=== PATIENT | male | born 2000 | race Hispanic/Latino ===

== ENCOUNTER 2021-08-20 13:43 | Emergency (ER) | payer OTHER, SELFPAY ==
[2021-08-20 13:45] VITALS: BP 124/87; PULSE 89; RESP 16; TEMP 36.8; O2SAT 100; BMI 24.3
--- NOTE | 2021-08-20 14:41 | CT_ITS ---
STUDY: CT BRAIN WITHOUT CONTRAST REASON FOR EXAM: Male, 21 years old. Seizure and head injury RADIATION DOSAGE (If Supplied By Facility): CTDIvol = ( 44.99 ) mGy, DLP = ( 796.11 ) mGycm TECHNIQUE: Transaxial CT imaging of the brain was performed without administration of intravenous contrast material. Individualized dose optimization techniques were used for this CT. COMPARISON: No relevant priors. FINDINGS: Normal soft tissue structures. Normal calvarium. Normal size ventricles and extra-axial spaces for the patient''s age. Normal white matter tracts of the cerebral hemispheres. Normal basal ganglia and thalami. Normal brainstem. Normal cerebellum. There is no intracranial hemorrhage. There are no findings of an acute ischemic infarction. Normal visualized paranasal sinuses. CT/Brain/Head without Contrast IMPRESSION: Normal unenhanced CT scan of the brain. Electronically Signed: Garret Crum MD at 15:21 EDT ,
--- NOTE | 2021-08-20 14:46 | EDS_ITS ---
HPI History of Present Illness Chief Complaint: Syncope Informant: patient and spouse/S.O. Onset/Context/Timing Onset: Yesterday Context: Sudden Onset Timing: Intermittent Current Severity: Gone Maximum Severity: Moderate Narrative Narrative: 21-year-old male no seen past medical history. Reportedly was urinating yes terday said it was taken a while to urinate and it came out slowly and he felt cold got into a sweat and had a syncopal episode. He does remember anything past then. At that time his girlfriend came in saw him tense up lose consciousness fall backwards. She was concerned he had had a seizure. Said he was unconscious for 1 to 2 minutes. He denies any injuries. She was given to call the squad and he woke up so they did not seek care until today. He denies any recent illness. Only has a mild headache from falling and hitting his head. Denies any neck pain or other complaints. No recent illness. No prior history of seizures and no family history of seizures. Prior similar symptoms: No Recent Illness/Hospitalization: No PFSH PFSH Medical History no medical history no medical history Home Medications NK 08/20/21 [History Last Taken Unknown] Allergy/AdvReac Type Severity Reaction Status Date / Time No Known Allergies Allergy Verified 08/20/21 13:48 Surgical History no surgical history no surgical history Social History Smoking Status: Current every day smoker tobacco type: cigarettes and e- cigarettes ROS ROS ED ROS Narrative Denies recent illness. Review of Systems ROS Unobtainable: Denies due to encephalopathy Constitutional Constitutional ED: Denies chills Eyes Eyes: Denies blurry vision ENT ENT ED: Denies ear pain Cardiovascular Cardiovascular: Denies chest pain Respiratory/Chest Respiratory/Chest: Denies cough Gastrointestinal Gastrointestinal: Denies abdominal pain or constipation Genitourinary Genitourinary ED: Denies dysuria Musculoskeletal Musculoskeletal: Denies arthralgias Integumentary Denies abscess Neurologic Neurologic: Denies headache(s) Psychiatric Psychiatric: Denies anxiety Endocrine Endocrinology: Denies cold intolerance Hematologic/Lymphatic Hematologic/Lymphatic: Reports none Allergic/Immunologic Allergic/Immunologic ED: Denies mouth swelling or tongue swelling EXAM Physical Exam Narrative Exam Narrative: 19-year-old male no acute distress vital signs stable afebrile. Pulse ox 9% on room air no signs hypoxia. H EENT exam unremarkable. Pupils round reactive light. EXTR intact. No scalp tenderness. No hematomas or lacerations. C- spine nontender. Full range of motion. Trachea midline. Back nontender. Spine nontender. Lungs clear to auscultation. Heart regular rhythm no murmur. Abdomen soft nontender. Chest wall nontender. Moving all 4 extremities. Neurologically is awake and alert with no focal motor or sensory deficits. GCS of 15. NIH is 0. Bilateral [employer] un[employer] administrator strength. Bilateral fingertip to nose. Bilateral [id number] all within normal limits. Const Vital Signs: 08/20/21 13:45 08/20/21 15:11 Temperature 98.3 F Temperature Source Temporal Pulse Rate 89 Respiratory Rate 16 Respiratory Effort Normal Respiratory Pattern Normal Blood Pressure 124/87 H Blood Pressure Mean 99 Pulse Ox 100 Oxygen Delivery Method Room Air Positive well nourished and well developed; Negative for obese, cachectic, contractures or unkempt General Appearance ED: well developed; Negative for unkempt, cachectic or contractures Nutritional Appearance: Negative for cachectic or obese HEENT Reports moist mucous membranes; Denies dry mucous membranes Negative for trauma Mouth ED: No dry mucous membranes Mouth: No dry mucous membranes Eyes PERRL and EOMs intact bilaterally General Eye ED: Negative for pale conjunctiva or scleral icterus Neck no lymphadenopathy, supple and no JVD General: Negative for tenderness Lymph Lymphatic: Negative for other Chest Wall inspection of chest normal and palpation of chest normal Resp normal respiratory effort and clear to auscultation bilaterally Effort and Inspection: Negative for retractions Auscultation: Negative for rales, rhonchi or wheezes Cardio regular rate, regular rhythm, S1 normal heart sound, S2 normal heart sound and no murmurs Palpation: Negative for palpable S3 Rate: Negative for bradycardia Rhythm: Negative for abnormal rhythm GI normal to inspection, nondistended, normoactive bowel sounds, non-tender, non- distended and no masses; Negative for hepatosplenomegaly Inspection: Negative for abdominal distention Auscultation: normoactive bowel sounds Palpation: soft Back/Spine no CVA tenderness General Back: Negative for CVA tenderness Cervical Spine: Negative for cervical spine tenderness Thoracic Spine / Upper Back: Negative for thoracic spinal tenderness Lumbar Spine / Lower Back: Negative for lumbar spinal tenderness Extremity normal to inspection General Extremety ED: Negative for edema or tenderness General Extremity: Negative for edema Neuro oriented x3 and CN's II-XII intact bilaterally Sensorium / Orientation: alert Motor Exam: strength 5/5 throughout; Negative for general weakness or strength abnormal Psych mental status grossly normal Appearance: Negative for unkempt Attitude: No agitated Mood & Affect: Negative for depressed, anxious or tearful Skin no rashes or lesions noted, no wounds and skin turgor normal Rashes: No rashes noted Trauma: Negative for abrasion Wounds: Negative for wounds noted MDM MDM MDM Narrative Medical decision making narrative: 21-year-old male significant other is concerned he may have had a seizure yesterday it sounds like he had micturition syncope with myoclonic jerks. His exam is normal. We will get a CAT scan and labs. Repeat exam patient doing well at 3:40 PM. To be discharged home. Clinically I think this was micturition syncope and not a seizure. Lab Data Attestation: I reviewed the patient's lab results. Lab results narrative: CBC normal. White count of 6. H&H 15 and 44. Electrolytes normal. Normal gap. Normal BUN and creatinine. Normal glucose. CT of the brain shows no acute abnormality. Read by the radiologist and reviewed. Labs: Laboratory Results - last 24 hr 08/20/21 08/20/21 08/20/21 14:50 14:50 15:22 WBC Cancelled 6.2 Corrected WBC Cancelled RBC Cancelled 4.70 Hgb Cancelled 15.3 Hct Cancelled 44.7 MCV Cancelled 95.1 H MCH Cancelled 32.6 H MCHC Cancelled 34.2 RDW Std Deviation Cancelled 41.0 RDW Coeff of Srinivasan Cancelled 11.9 Plt Count Cancelled 167 MPV Cancelled 10.6 Immature Gran % (Auto) Cancelled 0.200 Neut % (Auto) Cancelled 47.5 Lymph % (Auto) Cancelled 39.0 [place] % (Auto) Cancelled 8.0 Eos % (Auto) Cancelled 4.6 Baso % (Auto) Cancelled 0.7 Absolute Neuts (auto) Cancelled 2.9 Absolute Lymphs (auto) Cancelled 2.40 Total Counted Cancelled Neutrophils % (Manual) Cancelled Band Neutrophils % Cancelled Lymphocytes % (Manual) Cancelled Monocytes % (Manual) Cancelled Eosinophils % (Manual) Cancelled Basophils % (Manual) Cancelled Metamyelocytes % Cancelled Myelocytes % Cancelled Promyelocytes % Cancelled Blast Cells % Cancelled Plasma Cell % (Manual) Cancelled Other Cells % Cancelled Nucleated RBC % Cancelled 0 Nucleated RBCs/100 WBC Cancelled Differential Comment Cancelled Diff Path Review Cancelled Hypersegmented Neuts Cancelled Atypical Lymphocytes Cancelled Reactive Lymphocytes Cancelled Smudge Cells Cancelled Toxic Granulation Cancelled Toxic Vacuolation Cancelled Dohle Bodies Cancelled Joy Rods Cancelled Platelet Estimate Cancelled Plt Morphology Comment Cancelled RBC Morphology Cancelled Polychromasia Cancelled Hypochromasia Cancelled Poikilocytosis Cancelled Basophilic Stippling Cancelled Anisocytosis Cancelled Microcytosis Cancelled Macrocytosis Cancelled Spherocytes Cancelled Sickle Cells Cancelled Target Cells Cancelled Tear Drop Cells Cancelled Ovalocytes Cancelled Stomatocytes Cancelled [place] Bodies Cancelled Treadwell Cells Cancelled Bite Cells Cancelled Crenated Cell Cancelled Acanthocytes (Spur) Cancelled Rouleaux Cancelled Schistocytes Cancelled Sodium 140 Potassium 4.3 Chloride 107 Carbon Dioxide 26.0 Anion Gap 7 BUN 13 Creatinine 0.89 Estim Creat Clear Calc 125.96 Est GFR (MDRD) Af Amer 138 Est GFR (MDRD) Non-Af 114 BUN/Creatinine Ratio 14.6 Glucose 82 Calcium 9.3 Radiography Diagnostic Testing: Clinical Impression(s) from Imaging Studies Brain CT 08/20/21 14:41 IMPRESSION: Normal unenhanced CT scan of the brain. Electronically Signed: Garret Crum MD at 15:21 EDT , Discharge Plan Triage Chief Complaint: Syncope ED Provider: Brooks Augustin Dx/Rx/DC Orders Clinical Impression: Micturition syncope, Head injury Instructions: Understanding Vasovagal Syncope Prescriptions: No Action NK Primary Care Provider: NOT,DEFINED Referrals: Loc Mauricio MD [STAFF PHYSICIAN] - As Needed NOT,DEFINED [Primary Care Provider] - Activity Restrictions/Additional Instructions: Your labs and CAT scan were normal. Disposition Disposition: Home, Self Care
[2021-08-20 15:29] LABS: Anion Gap 7 (5-15); BUN 13 mg/dL (7-18); BUN/Creat Ratio 14.6 RATIO (10-20); Calcium,Total 9.3 mg/dL (8.5-10.1); Chloride 107 mmol/L (98-107); Creatinine, Serum 0.89 mg/dL (0.70-1.30); EST Glomerular Filtration Rate 114 mL/min (>60); Est Glom Filt Rate - Afr Amer 138 mL/min (>60); Estimated Creatinine Clearance 125.96 ml/min; Glucose 82 mg/dL (74-106); Potassium 4.3 mmol/L (3.5-5.1); Sodium Level 140 mmol/L (136-145)
[2021-08-20 15:31] LABS: Absolute Neutrophil Count 2.9 X10^3/uL (2.0-7.7); Basophil# 0.04 X10^3/uL; Basophil% 0.7 % (0-1); Eosinophil# 0.28 X10^3/uL; Eosinophils% 4.6 % (0-5); Hematocrit 44.7 % (40-54); Hemoglobin 15.3 g/dL (13.0-16.5); Mean Corp Hgb Conc 34.2 g/dL (32-36); Mean Corpuscular Hgb 32.6 pg (27.0-32.0); Mean Corpuscular Volume 95.1 fL (80-94); Mean Platelet Vol. 10.6 fl (6.2-12.0); Monocyte# 0.49 X10^3/uL; NRBC Flagged by Analyzer 0 % (0-5); Neutrophil # 2.93 X10^3/uL (2.7-7.7); Neutrophil % 47.5 % (47-70); Platelet Count 167 K/mm3 (150-450); RBC Distribution Width CV 11.9 % (11.6-14.6); White Blood Count 6.2 K/mm3 (4.4-11.0)
[2021-08-20 15:54] VITALS: BP 126/74; PULSE 85; RESP 15; O2SAT 99
== END 2021-08-20 15:55 | disposition home or self-care (01) ==
PROVIDERS: Emergency Provider Emergency Medicine; Visit Provider Emergency Medicine
DX: S09.8XXA Other specified injuries of head, initial encounter (principal); R55 Syncope and collapse; F17.210 Nicotine dependence, cigarettes, uncomplicated; W18.30XA Fall on same level, unspecified, initial encounter
CPT/HCPCS: 70450; 80048; 85025; 99282